=== PATIENT | female | born 1975 | race Caucasian/White ===

== ENCOUNTER 2016-10-08 12:09 | Emergency (ER) | payer BC ==
[~2016-10-08] VITALS: Ht 154.9 cm; Wt 72.6 kg
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
--- NOTE | 2016-10-08 12:17 | NUR ---
JENY AT FOR EVALUATION
[2016-10-08] MEDS ORDERED: TDAP [DIPH/PERTUSSIS/TET] 0.5 ML VIAL IM ONE ×2 (12:28→12:30)
[2016-10-08] MEDS ORDERED: LIDOCAINE HCL/PF 1% 30 ML SDV ONE (12:28)
[2016-10-08 13:52] VITALS: BP 122/84
--- NOTE | 2016-10-08 13:54 | NUR ---
Patient discharged to home in stable condition. Written and verbal after care instructions given. Patient verbalizes understanding of instruction. Prescription given to patient. Dressing on left toe dry and intact.
== END 2016-10-08 13:55 | disposition home or self-care (01) ==
LOC: ER 12:11
DX: S91.215A Laceration without foreign body of left lesser toe(s) with damage to nail, initial encounter (principal); W20.8XXA Other cause of strike by thrown, projected or falling object, initial encounter; Y93.9 Activity, unspecified; Y92.9 Unspecified place or not applicable; Y99.9 Unspecified external cause status
CPT/HCPCS: 73660-TC; 90715; A4606; A6402; J3490; Z7610